=== PATIENT | female | born 1960 | race Two or more races ===

== ENCOUNTER 2017-10-02 09:36 | Emergency (ER) | payer OTHER ==
[2017-10-02 09:40] VITALS: BP 111/75; PULSE 79; TEMP 97.6; BMI 25.4
--- NOTE | 2017-10-02 10:09 | PDOC ---
History of Present Illness - General Chief Complaint: Eye Problem Stated Complaint: EYE PROBLEM Time Seen by Provider: 10/02/17 10:05 History Source: Patient, Parent(s) (57y/[id number] F bib by karey who translated, pt is from [facility]. p/w R eye redness/discharge X 2wks) Exam Limitations: No Limitations Past History - Travel Traveled outside of the country in the last 30 days: No Close contact w/someone who was outside of country & ill: No - Past Medical History Allergies/Adverse Reactions: Allergies Allergy/AdvReac Type Severity Reaction Status Date / Time No Known Allergies Allergy Verified 10/02/17 09:41 Home Medications: Ambulatory Orders Sulfacetamide Sodium 10% [Bleph-10] 1 drop AD QID 7 Days #1 drops 10/02/17 COPD: No - Surgical History Cholecystectomy: Yes (2000) - Suicide/Smoking/Psychosocial Hx Smoking History: Never smoked Review of Systems - Review of Systems Is the patient limited Kiswahili proficient: No Constitutional: No: Chills, Fever HEENTM: Yes: Other (R eye redness/discharge). No: Eye Pain, Blurred Vision, Tearing, Double Vision, Ear Pain *Physical Exam - Vital Signs Last Vital Signs Temp Pulse Resp BP Pulse Ox 97.6 F 79 18 111/75 100 10/02/17 09:37 10/02/17 09:37 10/02/17 09:37 10/02/17 09:37 10/02/17 09:37 - Physical Exam General Appearance: Yes: Nourished HEENT: positive: Other (EYE EXAMINATION:b/l eyes PERRLA, EOML, R eye: ++ injection) Medical Decision Making - Medical Decision Making 10/02/17 10:14 57 years old female with right eyelid redness 2 weeks. Patient also discharge and itching right eye. She denies any trauma, blurred vision, FB sensation or contact ross use. Physical exam with injected right eye. A/P Conjuncttivis Rx for bleph 10 gtt f/u with PCP *DC/Admit/Observation/Transfer Diagnosis at time of Disposition: Acute conjunctivitis of right eye Qualifiers: Acute conjunctivitis type: unspecified Qualified Code(s): H10.31 - Unspecified acute conjunctivitis, right eye - Discharge Dispostion Disposition: HOME Condition at time of disposition: Stable Admit: No - Prescriptions Prescriptions: Sulfacetamide Sodium 10% [Bleph-10] 1 drop AD QID 7 Days #1 drops - Referrals - Patient Instructions Printed Discharge Instructions: Conjunctivitis Additional Instructions: I discussed the physical exam findings, ancillary test results and final diagnoses with the patient. I answered all of the patient's questions. The patient was satisfied with the care received and felt comfortable with the discharge plan and treatment plan. The patient will call their primary care physician within 24 hours to arrange follow-up and will return to the Emergency Department with any new, persistant or worsening symptoms. - Post Discharge Activity
== END 2017-10-02 10:36 | disposition home or self-care (01) ==
LOC: JERFT 09:36
DX: R10.31 Right lower quadrant pain (principal)
CPT/HCPCS: 99281-25

== ENCOUNTER 2019-07-28 18:08 | Emergency (ER) | payer OTHER ==
[2019-07-28 18:39] VITALS: BMI 26.6
[2019-07-28] MEDS ORDERED: ACETAMINOPHEN 325 MG TABLET (FP) PO ONE (18:39)
--- NOTE | 2019-07-28 19:00 | PDOC ---
History of Present Illness - General Chief Complaint: Cold Symptoms Stated Complaint: FEVER Time Seen by Provider: 07/28/19 19:00 - History of Present Illness Initial Comments: 59 07/28/19 19:00 Past History - Past Medical History Allergies/Adverse Reactions: Allergies Allergy/AdvReac Type Severity Reaction Status Date / Time No Known Allergies Allergy Verified 07/28/19 18:31 Home Medications: Ambulatory Orders Divalproex [Depakote -] 250 mg PO DAILY 07/28/19 Ergocalciferol (Vitamin D2) [Vitamin D2] 50,000 unit PO WEEKLY 07/28/19 Losartan Potassium [Cozaar -] 25 mg PO DAILY 07/28/19 COPD: No HTN: Yes - Surgical History Cholecystectomy: Yes (2000) - Psycho Social/Smoking Cessation Hx Smoking History: Never smoked *Physical Exam - Vital Signs Last Vital Signs Temp Pulse Resp BP Pulse Ox 102.2 F H 95 H 18 95/57 L 98 07/28/19 18:37 07/28/19 18:37 07/28/19 18:37 07/28/19 18:37 07/28/19 18:37 ED Treatment Course - Medications Given in the ED: ED Medications Discontinued Medications Generic Name Dose Route Start Last Admin Trade Name Jairq PRN Reason Stop Dose Admin Acetaminophen 650 mg 07/28/19 18:39 07/28/19 18:39 Tylenol - PO 07/28/19 18:40 650 mg NOW ONE Administration
--- NOTE | 2019-07-28 19:17 | PDOC ---
*Physical Exam - Vital Signs Last Vital Signs Temp Pulse Resp BP Pulse Ox 102.2 F H 95 H 18 95/57 L 98 07/28/19 18:37 07/28/19 18:37 07/28/19 18:37 07/28/19 18:37 07/28/19 18:37 ED Treatment Course - Medications Given in the ED: ED Medications Discontinued Medications Generic Name Dose Route Start Last Admin Trade Name Freq PRN Reason Stop Dose Admin Acetaminophen 650 mg 07/28/19 18:39 07/28/19 18:39 Tylenol - PO 07/28/19 18:40 650 mg NOW ONE Administration Medical Decision Making - Medical Decision Making 07/28/19 19:17 Patient seen by the advanced practice provider under my supervision. Ancillary testing reviewed as necessary. I agree with plan as outlined by the advanced practice provider. Discharge - Discharge Information Problems reviewed: Yes Clinical Impression/Diagnosis: Febrile illness - Follow up/Referral Referrals: Aranza Thorpe [Primary Care Provider] - - Patient Discharge Instructions - Post Discharge Activity
--- NOTE | 2019-07-28 19:37 | PDOC ---
History of Present Illness - General Chief Complaint: Cold Symptoms Stated Complaint: FEVER Time Seen by Provider: 07/28/19 19:00 History Source: Patient Exam Limitations: No Limitations - History of Present Illness Initial Comments: 07/28/19 19:32 Patient is a 59-year-old female with history of osteoporosis, HTN, anxiety, cholecystectomy, RADHA and oophorectomy, here with complaints of fever, body ache x today. States was in her normal states of health. States have fever, bodyache today. Temp at home was 101. states slight cough nonproductive. Feels fatigue. Daughter also reports that her grand children who the patient watch daily was treated for strep recently. Patient denies sore throat, nausea , vomiting. PMD: Dr. Thorpe PMHX: as above PSOCHX: neg etoh, cig, drug. ALL: NKDA GENERAL/CONSTITUTIONAL: [No fever or chills. No weakness. No weight change.] HEAD, EYES, EARS, NOSE AND THROAT: [No change in vision. No ear pain or discharge. No sore throat.] CARDIOVASCULAR: [No chest pain or shortness of breath.] RESPIRATORY: [(+) cough, (-) wheezing, or hemoptysis.] GASTROINTESTINAL: [No nausea, vomiting, diarrhea or constipation. No rectal bleeding.] GENITOURINARY: [No dysuria, frequency, or change in urination.] MUSCULOSKELETAL: [No joint or muscle swelling or pain. No neck or back pain.] SKIN AND BREASTS: [No rash or easy bruising.] NEUROLOGIC: [No headache, vertigo, loss of consciousness, or loss of sensation.] PSYCHIATRIC: [No depression or anxiety.] ENDOCRINE: [No increased thirst. No abnormal weight change.] HEMATOLOGIC/LYMPHATIC: [No anemia, easy bleeding, or history of blood clots.] ALLERGIC/IMMUNOLOGIC: [No hives or skin allergy. No latex allergy.] GENERAL: [The patient is awake, alert, and fully oriented, in no acute distress. ] HEAD: [Normal with no signs of trauma.] EYES: [Pupils equal, round and reactive to light, extraocular movements intact, sclera anicteric, conjunctiva clear.] ENT: [Ears normal, nares patent, oropharynx clear without exudates. Moist mucous membranes.] NECK: [Normal range of motion, supple without lymphadenopathy, JVD, or masses.] LUNGS: [Breath sounds equal, clear to auscultation bilaterally. No wheezes, and no crackles.] HEART: [Regular rate and rhythm, normal S1 and S2 without murmur, rub.] ABDOMEN: [Soft, nontender, normoactive bowel sounds. No guarding, no rebound. No masses.] EXTREMITIES: [Normal range of motion, no edema. No clubbing or cyanosis. No cords, erythema, or tenderness.] NEUROLOGICAL: [Cranial nerves II through XII grossly intact. Normal speech, normal gait.] PSYCH: [Normal mood, normal affect.] SKIN: [Warm, Dry, normal turgor, no rashes or lesions noted.] Past History - Past Medical History Allergies/Adverse Reactions: Allergies Allergy/AdvReac Type Severity Reaction Status Date / Time No Known Allergies Allergy Verified 07/28/19 18:31 Home Medications: Ambulatory Orders Divalproex [Depakote -] 250 mg PO DAILY 07/28/19 Ergocalciferol (Vitamin D2) [Vitamin D2] 50,000 unit PO WEEKLY 07/28/19 Losartan Potassium [Cozaar -] 25 mg PO DAILY 07/28/19 COPD: No HTN: Yes - Surgical History Cholecystectomy: Yes (2000) - Psycho Social/Smoking Cessation Hx Smoking History: Never smoked *Physical Exam - Vital Signs Last Vital Signs Temp Pulse Resp BP Pulse Ox 102.2 F H 95 H 18 95/57 L 98 07/28/19 18:37 07/28/19 18:37 07/28/19 18:37 07/28/19 18:37 07/28/19 18:37 ED Treatment Course - RADIOLOGY Radiology Studies Ordered: Category Date Time Status CHEST PA & LAT [RAD] Stat Radiology 07/28/19 19:30 Ordered - Medications Given in the ED: ED Medications Discontinued Medications Generic Name Dose Route Start Last Admin Trade Name Freq PRN Reason Stop Dose Admin Acetaminophen 650 mg 07/28/19 18:39 07/28/19 18:39 Tylenol - PO 07/28/19 18:40 650 mg NOW ONE Administration Medical Decision Making - Medical Decision Making 07/28/19 19:32 Patient is a 59-year-old female with history of osteoporosis, HTN, anxiety, cholecystectomy, RADHA and oophorectomy, here with complaints of fever, body ache x today. States was in her normal states of health. States have fever, bodyache today. Temp at home was 101. states slight cough nonproductive. Feels fatigue. Daughter also reports that her grand children who the patient watch daily was treated for strep recently. Patient denies sore throat, nausea , vomiting. Symptoms consistent with viral illness possibly flu. Patient received Tylenol in triage. Influenza swab, rapid strep, chest x-ray, UA Re-eval 07/28/19 19:53 Chest x-ray negative for infiltrates. Selected Entries 07/28/19 19:30 Temperature 99.9 F H Pulse Rate [ 86 Right Radial] Respiratory 18 Rate Blood Pressure 104/65 [Left Arm] O2 Sat by Pulse 96 Oximetry (%) Rapid strep is negative Influenza negative UA negative I discussed the physical exam findings, ancillary test results and final diagnoses with the patient. I answered all of the patient's questions. The patient was satisfied with the care received and felt comfortable with the discharge plan and treatment plan. The Patient agrees to follow up with the primary care physician within 24-72 hours. Discharge - Discharge Information Problems reviewed: Yes Clinical Impression/Diagnosis: Febrile illness, Cough Condition: Stable Disposition: HOME - Follow up/Referral Referrals: Aranza Thorpe [Primary Care Provider] - - Patient Discharge Instructions Patient Printed Discharge Instructions: DI for Viral Upper Respiratory Infection -- Adult Additional Instructions: Your Discharge Instructions: You must call primary care physician within 24 hours to arrange follow-up. Return to the Emergency Department with any new, persistent or worsening symptoms, for fever, chills, SOB, dizziness or any other concerning changes that may occur. Follow-up with your primary care doctor in the next 24 hours. Take Tylenol and Motrin for your symptoms as needed. - Post Discharge Activity
[2019-07-28 19:55] VITALS: BP 104/65; PULSE 86; TEMP 99.9
[2019-07-28 20:09] LABS: PH,URINE 7.5 (5.0-8.0); URINE APPEARANCE CLEAR; URINE BILIRUBIN NEGATIVE (NEGATIVE); URINE COLOR YELLOW; URINE GLUCOSE (UA) NEGATIVE (NEGATIVE); URINE KETONE NEGATIVE (NEGATIVE); URINE LEUK ESTERASE NEGATIVE (NEGATIVE); URINE NITRITE NEGATIVE (NEGATIVE); URINE PROTEIN NEGATIVE (NEGATIVE)
== END 2019-07-28 20:38 | disposition home or self-care (01) ==
LOC: JER 18:08
DX: J06.9 Acute upper respiratory infection, unspecified (principal); R50.81 Fever presenting with conditions classified elsewhere; I10 Essential (primary) hypertension; F41.9 Anxiety disorder, unspecified; M81.0 Age-related osteoporosis without current pathological fracture; Z90.710 Acquired absence of both cervix and uterus; Z90.722 Acquired absence of ovaries, bilateral
CPT/HCPCS: 71046-TC-FY; 81003; 87070; 87804; 87880; 99282-25

== ENCOUNTER 2019-08-11 08:52 | Emergency (ER) | payer OTHER ==
[2019-08-11 09:09] VITALS: BP 100/63; PULSE 67; TEMP 97.5; BMI 25.7
--- NOTE | 2019-08-11 09:26 | PDOC ---
History of Present Illness - General Chief Complaint: Eye Problem Stated Complaint: EYE PROBLEM Time Seen by Provider: 08/11/19 09:09 History Source: Patient Exam Limitations: No Limitations Past History - Travel Traveled outside of the country in the last 30 days: No Close contact w/someone who was outside of country & ill: No - Past Medical History Allergies/Adverse Reactions: Allergies Allergy/AdvReac Type Severity Reaction Status Date / Time No Known Allergies Allergy Verified 07/28/19 18:31 Home Medications: Ambulatory Orders Divalproex [Depakote -] 250 mg PO DAILY 07/28/19 Ergocalciferol (Vitamin D2) [Vitamin D2] 50,000 unit PO WEEKLY 07/28/19 Losartan Potassium [Cozaar -] 25 mg PO DAILY 07/28/19 Erythromycin 0.5% Eye Ointment [Erythromycin 0.5% Eye Ointment -] 1 applic OS TID #1 tube 08/11/19 COPD: No HTN: Yes - Surgical History Cholecystectomy: Yes (2000) - Psycho Social/Smoking Cessation Hx Smoking History: Never smoked Information on smoking cessation initiated: No Hx Alcohol Use: No Drug/Substance Use Hx: No Review of Systems - Review of Systems Able to Perform ROS?: Yes Comments:: 08/11/19 09:22 CONSTITUTIONAL: Absent: fever, chills, diaphoresis, generalized weakness, malaise, loss of appetite HEENT: Present: L Eye pain Absent: rhinorrhea, nasal congestion, throat pain, throat swelling, difficulty swallowing, mouth swelling, ear pain, visual Changes CARDIOVASCULAR: Absent: chest pain, loss of consciousness, palpitations, irregular heart rate, peripheral edema RESPIRATORY: Absent: cough, shortness of breath, dyspnea with exertion, orthopnea, wheezing, stridor, hemoptysis SKIN: Absent: rash, itching, pallor NEUROLOGIC: Absent: headache, focal weakness or paresthesias, dizziness, unsteady gait, seizure, mental status changes, bladder or bowel incontinence PSYCHIATRIC: Absent: anxiety, depression, suicidal or homicidal ideation, hallucinations. Is the patient limited Welsh proficient: No *Physical Exam - Vital Signs Last Vital Signs Temp Pulse Resp BP Pulse Ox 97.5 F L 67 16 100/63 95 08/11/19 09:01 08/11/19 09:01 08/11/19 09:01 08/11/19 09:01 08/11/19 09:01 - Physical Exam 08/11/19 09:23 GENERAL: The patient is awake, alert, and fully oriented, in no acute distress. HEAD: Normal with no signs of trauma. EYES: Pupils equal, round and reactive to light, extraocular movements intact, sclera anicteric, R conjunctiva clear. Mild erythema noted to the L lateral canthus. EXTREMITIES: Normal range of motion, no edema. NEUROLOGICAL: Normal speech, normal gait. PSYCH: Normal mood, normal affect. SKIN: Warm, Dry, normal turgor, no rashes or lesions noted. Medical Decision Making - Medical Decision Making 08/11/19 09:24 The patient is a 59-year-old female with PMH of HTN, who presents to the ER today for left eye itching, burning and redness. She states her symptoms started yesterday. She notes she woke up with a clear yellow discharge this morning and had a hard time opening her eye. Denies fevers, chills, visual changes, double vision and nausea. A/P: Conjunctivitis On exam there is mild erythema to the lateral canthus. Given symptoms of itching and discharge will treat as a conjunctivitis. Erythromycin sent to patient pharmacy. Patient told to follow-up with her primary care in 1 week if her symptoms or not improving. Discharge home. I discussed the physical exam findings, ancillary test results and final diagnoses with the patient. I answered all of the patient's questions. The patient was satisfied with the care received and felt comfortable with the discharge plan and treatment plan. The Patient agrees to follow up with the primary care physician/specialist within 24-72 hours. Return precautions were given. Discharge - Discharge Information Problems reviewed: Yes Clinical Impression/Diagnosis: Conjunctivitis, left eye Qualifiers: Conjunctivitis type: acute Acute conjunctivitis type: unspecified Qualified Code(s): H10.32 - Unspecified acute conjunctivitis, left eye Condition: Stable Disposition: HOME - Admission No - Follow up/Referral Referrals: Aranza Thorpe [Primary Care Provider] - - Patient Discharge Instructions Patient Printed Discharge Instructions: DI for Conjunctivitis Additional Instructions: You have conjunctivitis. This is an eye infection. Please use erythromycin ointment twice a day to the affected eye for one week. Please wash her hands frequently Do not wear contact lenses until your infection clears Follow up with ophthalmology if her symptoms do not improve within a week. Return to the ER for visual changes, blurry vision, or any new or worsening symptoms. - Post Discharge Activity
== END 2019-08-11 09:30 | disposition home or self-care (01) ==
LOC: JERFT 08:52 → JER 08:52 → JERFT 09:30
DX: H10.32 Unspecified acute conjunctivitis, left eye (principal); I10 Essential (primary) hypertension
CPT/HCPCS: 99282-25